=== PATIENT | female | born 1965 | race Caucasian/White ===

== ENCOUNTER 2023-10-22 12:36 | Outpatient (CLI) | payer OTHER | END 2023-10-22 12:37 | disposition home or self-care (01) | LOC: SCSRAD 12:36 | PROVIDERS: ATTEND Nurse Practitioner Family | DX: S89.91XA Unspecified injury of right lower leg, initial encounter (principal) ==

== ENCOUNTER 2023-10-30 09:37 | Outpatient (CLI) | payer OTHER | END 2023-10-30 09:38 | disposition home or self-care (01) | LOC: BICMRI 09:37 | PROVIDERS: ATTEND Family Medicine | DX: M23.91 Unspecified internal derangement of right knee (principal); S83.411A Sprain of medial collateral ligament of right knee, initial encounter ==